=== PATIENT | male | born 1960 | race Caucasian/White ===

== ENCOUNTER 2021-02-07 08:27 | Outpatient (REF) | payer OTHER, SELFPAY ==
[2021-02-07 23:08] LABS: Alkaline Phosphatase 93 U/L (46-116); BUN 12 mg/dL (7-18); Bilirubin, Total 0.7 mg/dL (0.2-1.0); CREATININE 0.9 mg/dL (0.70-1.30); Calcium 9.1 mg/dL (8.5-10.1); Calculated LDL 182 mg/dL (<100); Cholesterol 260 mg/dL (<200); Glucose 104 mg/dL (74-106); HDL Cholesterol 66 mg/dL (40-60); Potassium 5.1 mmol/L (3.5-5.1); Sodium 140 mmol/L (136-145); Total Protein 6.9 g/dL (6.4-8.2); Triglyceride 63 mg/dL (<150)
[2021-02-07 23:09] LABS: ALT 51 U/L (16-63); AST 29 U/L (15-37); Anion Gap 8.2 mmol/L (3-11); CO2 27.8 mmol/L (21.0-32.0); Chloride 104 mmol/L (98-107)
[2021-02-09 10:54] LABS: HIV-1/2 Ag & Ab Screen Negative (Negative)
[2021-02-09 11:04] LABS: Hepatitis C Ab w Rflx HCV PCR Negative (Negative)
== END 2021-02-07 08:28 | disposition home or self-care (01) ==
LOC: NCHCN 08:27
PROVIDERS: Visit Provider Physician Assistant
DX: R03.0 Elevated blood-pressure reading, without diagnosis of hypertension (principal); Z11.59 Encounter for screening for other viral diseases; E66.9 Obesity, unspecified; Z00.00 Encounter for general adult medical examination without abnormal findings
CPT/HCPCS: 80053; 80061; 86803; 87389